=== PATIENT | male | born 1965 | race Caucasian/White ===

== ENCOUNTER 2018-09-22 11:31 | Observation (INO) | payer BC ==
[2018-09-22] MEDS ORDERED: RX INFO: IV CONTRAST WAS GIVEN 1 EACH MISC MISCELLANE PRN (11:56)
[2018-09-22] MEDS ORDERED: SODIUM CHLORIDE 0.9% 500 ML IV STA (11:58)
--- NOTE | 2018-09-22 11:59 | ED ---
General Adult HPI - General Chief complaint: Recheck/Abnormal Lab/Rx Stated complaint: can't swallow Time Seen by Provider: 09/22/18 11:44 Source: patient Mode of arrival: ambulatory Limitations: no limitations - History of Present Illness Initial comments: Dictation was produced using [employer] dictation software. please excuse any grammatical, word or spelling errors. Chief Complaint: 53-year-old male with past medical history of ALLERGIES presents with dysphagia. History of Present Illness: She is 53-year-old male. He states that approximately 2-3 times a year he gets episodes of dysphasia. [facility]. States that he had difficulty swallowing. Patient was told that he has ALLERGIC reactions that constantly this issue. Patient states he feels like there is foreign body sensation in his throat. He reports that his symptoms started when he was eating a fried blooming onion. Since then patient has been having intermittent episodes of drooling. Patient states that time he swallows he feels as though he has at the right right back up. The ROS documented in this emergency department record has been reviewed and confirmed by me. Those systems with pertinent positive or negative responses have been documented in the HPI. All other systems are other negative and/or noncontributory. PHYSICAL EXAM: General Impression: Alert and oriented x3, not in acute distress, no drooling, no tripoding HEENT: Normocephalic atraumatic, extra-ocular movements intact, pupils equal and reactive to light bilaterally, mucous membranes moist. Cardiovascular: Heart regular rate and rhythm, S1&S2 audible, no murmurs, rubs or gallops Chest: Lungs clear to auscultation bilaterally, no rhonchi, no wheeze, no rales Abdomen: Bowel sounds present, abdomen soft, non-tender, non-distended, no organomegaly Musculoskeletal: Pulses present and equal in all extremities, no peripheral garcia a Motor: no focal deficits noted Neurological: CN II-XII grossly intact, no focal motor or sensory deficits noted Skin: Intact with no visualized rashes Psych: Normal affect and mood ED course: 53-year-old male presents with chief complaint of dysphasia. Reports that today's episode is severe more than usual. He gets these episodes for approximately 2-3 times a year for the last 2-3 years. Vital signs upon arrival are within acceptable limits. Patient denies ever having been worked up for this in the past. Has not seen a GI specialist.Laboratory evaluation obtained. Mild leukocytosis of 11.8. Cardiac panel unremarkable. Metabolic panel shows mild Acidosis likely secondary to dehydration. Patient given intravenous fluids. CT of the chest was obtained to evaluate the esophagus. There is retained fluid construct a thoracic esophagus with poor clearance. There is also abnormal circumferential thickening. There is esophagitis versus stricture versus esophageal carcinoma differential. Patient not time. I bedside. Patient case discussed with Dr. Santizo of GI who will likely perform EGD tomorrow morning. Discussed patient case with accepting physician Dr. Lomax who requests a modified barium swallow study. Patient is understandable and agreeable to disposition. EKG interpretation: Ventricular rate 80, normal sinus rhythm, NJ interval 132, care is 86, QTC 445. No NJ prolongation, no QTC prolongation, no ST or T-wave changes noted. Overall, this EKG is unremarkable - Related Data Home Medications Medication Instructions Recorded Confirmed Diphenox-Atrop 2.5-0.025 mg 1 tab PO QID PRN 09/19/14 09/22/18 [Lomotil] Dicyclomine HCl 20 mg PO TID 09/22/18 09/22/18 diphenhydrAMINE HCL [Benadryl] 25 mg PO Q4H PRN 09/22/18 09/22/18 Allergies Allergy/AdvReac Type Severity Reaction Status Date / Time aspirin Allergy Rash/Hives Verified 09/22/18 12:24 blueberry Allergy Unknown Verified 09/22/18 12:24 latex Allergy Rash/Hives Verified 09/22/18 12:24 strawberry Allergy Unknown Verified 09/22/18 12:24 yellow dye Allergy Rash/Hives Verified 09/22/18 12:24 PICKLES Allergy Unknown Uncoded 09/22/18 12:24 Review of Systems ROS Statement: Those systems with pertinent positive or pertinent negative responses have been documented in the HPI. ROS Other: All systems not noted in ROS Statement are negative. Past Medical History Past Medical History: Hyperlipidemia History of Any Multi-Drug Resistant Organisms: None Reported Additional Past Surgical History / Comment(s): testicular sx; ibs Past Psychological History: Anxiety Smoking Status: Never smoker Past Alcohol Use History: None Reported Past Drug Use History: None Reported General Exam Limitations: no limitations Course Vital Signs 09/22/18 11:39 Temperature 98.1 F Pulse Rate 92 Respiratory 18 Rate Blood Pressure 159/112 O2 Sat by Pulse 99 Oximetry Medical Decision Making - Lab Data Result diagrams: 09/22/18 12:15 09/22/18 12:15 Lab Results 09/22/18 09/22/18 09/22/18 Range/Units 12:15 12:15 12:15 WBC 11.8 H (3.8-10.6) k/uL RBC 5.19 (4.30-5.90) m/uL Hgb 16.8 (13.0-17.5) gm/dL Hct 49.9 (39.0-53.0) % MCV 96.2 (80.0-100.0) fL MCH 32.4 (25.0-35.0) pg MCHC 33.7 (31.0-37.0) g/dL RDW 12.6 (11.5-15.5) % Plt Count 249 (150-450) k/uL Neutrophils % 78 % Lymphocytes % 12 % Monocytes % 6 % Eosinophils % 1 % Basophils % 0 % Neutrophils # 9.1 H (1.3-7.7) k/uL Lymphocytes # 1.4 (1.0-4.8) k/uL Monocytes # 0.7 (0-1.0) k/uL Eosinophils # 0.1 (0-0.7) k/uL Basophils # 0.1 (0-0.2) k/uL PT 11.7 (9.0-12.0) sec INR 1.1 (<1.2) Sodium 140 (137-145) mmol/L Potassium 4.3 (3.5-5.1) mmol/L Chloride 108 H (98-107) mmol/L Carbon Dioxide 20 L (22-30) mmol/L Anion Gap 12 mmol/L BUN 15 (9-20) mg/dL Creatinine 0.80 (0.66-1.25) mg/dL Est GFR (CKD-EPI)AfAm >90 (>60 ml/min/1.73 sqM) Est GFR (CKD-EPI)NonAf >90 (>60 ml/min/1.73 sqM) Glucose 113 H (74-99) mg/dL Calcium 10.4 H (8.4-10.2) mg/dL Disposition Clinical Impression: Dysphagia Disposition: ADMITTED IP TO THIS HOSP Condition: Fair Referrals: Zan Curran MD [Primary Care Provider] - 1-2 days Decision Time: 13:46
[2018-09-22 12:34] LABS: Basophils # (A) 0.1 k/uL (0-0.2); Basophils % (A) 0 %; Eosinophils # (A) 0.1 k/uL (0-0.7); Eosinophils % (A) 1 %; HCT 49.9 % (39.0-53.0); HGB 16.8 gm/dL (13.0-17.5); Lymphocytes # (A) 1.4 k/uL (1.0-4.8); Lymphocytes % (A) 12 %; MCH 32.4 pg (25.0-35.0); MCHC 33.7 g/dL (31.0-37.0); MCV 96.2 fL (80.0-100.0); Mean Platelet Volume 7.1; Monocytes # (A) 0.7 k/uL (0-1.0); Monocytes % (A) 6 %; Neutrophils # (A) 9.1 k/uL (1.3-7.7); Neutrophils % (A) 78 %; Platelet Count 249 k/uL (150-450); RBC 5.19 m/uL (4.30-5.90); RDW 12.6 % (11.5-15.5); WBC 11.8 k/uL (3.8-10.6)
[2018-09-22 12:42] LABS: Anion Gap 12 mmol/L; Blood Urea Nitrogen 15 mg/dL (9-20); Calcium 10.4 mg/dL (8.4-10.2); Carbon Dioxide 20 mmol/L (22-30); Chloride 108 mmol/L (98-107); Glucose 113 mg/dL (74-99); INR 1.1 (<1.2); Potassium 4.3 mmol/L (3.5-5.1); Prothrombin Time 11.7 sec (9.0-12.0); Sodium 140 mmol/L (137-145)
--- NOTE | 2018-09-22 13:09 | CT ---
EXAMINATION TYPE: CT chest w con DATE OF EXAM: 09/22/2018 COMPARISON: None HISTORY: 53-year-old male with pain, Trouble swallowing, possible stricture in esophagus TECHNIQUE: Contiguous axial scanning of the chest after the administration of 100 mL of Isovue 300. Coronal/sagittal reconstructions performed. CT DLP: 343.5mGycm. Automatic exposure control utilized for a dose reduction. FINDINGS: There is retained fluid column within the thoracic esophagus with circumferential thickening and neil led food debris at the distal esophagus. Direct visualization is recommended. Low attenuation of the hepatic parenchyma suggesting fatty infiltration. Hilar splenule. Mildly hydro pic gallbladder 4.5 cm wide without surrounding inflammation. Likely due to fasting state. Heart normal size without pericardial effusion. Aorta normal caliber with a bovine configuration to the aortic arch. No thoracic lymphadenopathy. No consolidation or pleural effusion. Bones: No osseous destructive process. IMPRESSION: 1. Retained fluid column throughout the thoracic esophagus compatible with poor clearance. There is a bnormal circumferential thickening at the distal esophagus and suggestion of some mottled food debris . Esophagitis and stricture versus esophageal carcinoma are both in the differential. Direct visualiz ation recommended. 2. No acute pulmonary process.
[2018-09-22] MEDS ORDERED: NALOXONE 0.4 MG/ML 1 ML VIAL IV PRN (13:43)
[2018-09-22] MEDS ORDERED: ACETAMINOPHEN TAB 325 MG TAB PO PRN (13:43)
[2018-09-22] MEDS ORDERED: SODIUM CHLORIDE 0.9% 1,000 ML IV SCH (13:45)
[2018-09-22] MEDS ORDERED: GLUCAGON 1 MG/ML VIAL IM STA (16:34)
[2018-09-22] MEDS: ENOXAPARIN 40 MG/0.4 ML SYRINGE SQ SCH ×2 (22:31→22:34)
[2018-09-22] MEDS: LACTATED RINGERS 1,000 ML IV SCH (22:32)
[2018-09-23] MEDS: LACTATED RINGERS 1,000 ML IV SCH ×2 (05:22→14:56)
[2018-09-23] MEDS ORDERED: LIDOCAINE HCL/PF 20 MG/ML 10 ML AMP ONE (12:43)
[2018-09-23] MEDS ORDERED: PROPOFOL 10 MG/ML 20 ML VIAL IV ONE (12:43)
[2018-09-23] MEDS ORDERED: SODIUM CHLORIDE 0.9% 500 ML 500 ML IV ONE (12:46)
--- NOTE | 2018-09-23 13:12 | P.CONS ---
History of Present Illness - Reason for Consult Consult date: 09/23/18 Dysphagia Requesting physician: David Lomax - Chief Complaint Difficulty swallowing - History of Present Illness 53-year-old male with a medical history significant for hyperlipidemia and anxiety who presents to the hospital with difficulty swallowing. The patient had been eating earlier in the day when he had an episode of pain in his chest and difficulty swallowing. The patient reports prior episodes approximately 2-3 times per year. He attributes this to ALLERGIES to which are difficult to avoid at times. He reported this sensation of a foreign body in his food pipe and had intermittent episodes of difficulty swallowing. On presentation to the emergency department the patient had a CT chest which showed retained fluid in the esophagus as well as thickening of the cecal esophagus. Labs were significant for a WBC 11.8, hemoglobin 16.8, platelet count 249,000, and INR 1.1. The patient denies any history of GERD or use of H2 antagonist or PPI the rapy at home. No significant NSAID use reported. No prior endoscopic evaluation. The patient has not followed up with a cigarette tester in the past. Review of Systems REVIEW OF SYSTEMS: CONSTITUTIONAL: Denies any fevers, chills, weight change or fatigue. CARDIOVASCULAR: Denies any chest pain, palpitations high or low blood pressures RESPIRATORY: Denies any shortness of breath, hemoptysis or cough. GENITOURINARY: No dysuria or hematuria. MUSCULOSKELETAL: No weakness reported. SKIN: Denies any new rashes or lesions, jaundice or pallor. PSYCHIATRIC: Denies any depression or anxiety. NEUROLOGY: Denies headache, denies any new focal deficits. EARS/NOSE/THROAT: No recent hearing change, congestion, nasal discharge or sore throat. EYES: No pain in eyes, discharge or change in vision. GASTROINTESTINAL: As per HPI. Past Medical History Past Medical History: Hyperlipidemia History of Any Multi-Drug Resistant Organisms: None Reported Additional Past Surgical History / Comment(s): testicular sx; ibs Past Anesthesia/Blood Transfusion Reactions: No Reported Reaction Past Psychological History: Anxiety Smoking Status: Never smoker Past Alcohol Use History: None Reported Past Drug Use History: None Reported Additional History: Family history: Reviewed with the patient and noncont ributory to current medical presentation. Medications and Allergies Home Medications Medication Instructions Recorded Confirmed Type Diphenox-Atrop 2.5-0.025 mg 1 tab PO QID PRN 09/19/14 09/22/18 History [Lomotil] Dicyclomine HCl 20 mg PO TID 09/22/18 09/22/18 History diphenhydrAMINE HCL [Benadryl] 25 mg PO Q4H PRN 09/22/18 09/22/18 History Allergies Allergy/AdvReac Type Severity Reaction Status Date / Time aspirin Allergy Rash/Hives Verified 09/22/18 12:24 blueberry Allergy Unknown Verified 09/22/18 12:24 latex Allergy Rash/Hives Verified 09/22/18 12:24 strawberry Allergy Unknown Verified 09/22/18 12:24 yellow dye Allergy Rash/Hives Verified 09/22/18 12:24 PICKLES Allergy Unknown Uncoded 09/22/18 12:24 Physical Exam Vitals: Vital Signs Temp Pulse Pulse Resp BP BP Pulse Ox 09/23/18 08:00 18 09/23/18 07:55 98.7 F 102 H 18 146/82 93 L 09/22/18 23:32 98.3 F 88 18 134/89 95 09/22/18 19:30 18 09/22/18 18:28 90 18 09/22/18 17:35 98.1 F 90 18 146/108 97 09/22/18 17:12 147/99 09/22/18 17:11 98.3 F 99 16 93 L 09/22/18 11:39 98.1 F 92 18 159/112 99 Intake and Output 09/22/18 09/23/18 09/23/18 22:59 06:59 14:59 Intake Total 640 937 Balance 640 937 Intake: Intake, IV Titration 640 937 Amount Lactated Ringers 1,000 ml 937 @ 125 mls/hr IV .Q8H [facility] Rx#:[id number] Sodium Chloride 0.9% 1, 640 000 ml @ 80 mls/hr IV . [id number] [facility] Rx#:[id number] Other: Voiding Method Toilet Toilet # Emeses 1 Results CBC & Chem 7: 09/22/18 12:15 09/22/18 12:15 Labs: Abnormal Lab Results - Last 24 Hours (Table) 09/22/18 09/22/18 Range/Units 12:15 12:15 WBC 11.8 H (3.8-10.6) k/uL Neutrophils # 9.1 H (1.3-7.7) k/uL Chloride 108 H (98-107) mmol/L Carbon Dioxide 20 L (22-30) mmol/L Glucose 113 H (74-99) mg/dL Calcium 10.4 H (8.4-10.2) mg/dL CT scan - chest: report reviewed (Computed tomography scan of the chest which was significant for retained fluid in the esophagus as well as thickening of the distal esophagus.) Assessment and Plan (1) Dysphagia Narrative/Plan: Patient presenting with intermittent episodes of dysphagia and the sensation of a esophageal foreign body. The patient had been eating when he developed the symptoms and reported bringing up secretions as well as having associated pain in his chest and epigastric region of his abdomen. Episodes have been intermittent in the past. No prior history of PPI use, NSAID use or prior endoscopic evaluation. Current Visit: Yes Status: Acute Code(s): R13.10 - DYSPHAGIA, UNSPECIFIED SNOMED Code(s): 58065645 Plan: Supportive care Nothing by mouth PPI therapy and Plan on EGD for further evaluation Plan for biopsy of the midesophagus in the setting of intermittent dysphagia Further recommendations pending findings of EGD Thank you for allowing us to participate in the care of the patient we will continue to follow
--- NOTE | 2018-09-23 13:16 | P.PCN ---
Date of Procedure: 09/23/18 Description of Procedure: BRIEF HISTORY: 53-year-old male with a medical history significant for hyperlipidemia and anxiety who presents to the hospital with difficulty swallowing. The patient had been eating earlier in the day when he had an episode of pain in his chest and difficulty swallowing. The patient reports prior episodes approximately 2-3 times per year. He attributes this to ALLERGIES to which are difficult to avoid at times. He reported this sensation of a foreign body in his food pipe and had intermittent episodes of difficulty swallowing. On presentation to the emergency department the patient had a CT chest which showed retained fluid in the esophagus as well as thickening of the cecal esophagus. Labs were significant for a WBC 11.8, hemoglobin 16.8, platelet count 249,000, and INR 1.1. The patient denies any history of GERD or use of H2 antagonist or PPI therapy at home. No significant NSAID use reported. No prior endoscopic evaluation. The patient has not followed up with a community arts officer in the past. PROCEDURE PERFORMED: Esophagogastroduodenoscopy with biopsy. PREOPERATIVE DIAGNOSIS: Dysphagia, epigastric abdominal pain. ESTIMATED BLOOD LOSS: Minimal. IV sedation per anesthesia. PROCEDURE: After informed consent was obtained, the patient was brought into the endoscopy unit. IV sedation was administered by Anesthesia under continuous monitoring. Initially the Olympus GIF-190 video endoscope was inserted into the mouth. Esophagus intubated without any difficulty. It was gradually advanced into the stomach and duodenum and carefully examined. The bulb and the second part of the duodenum appeared normal, with biopsies taken. The scope at this time was withdrawn to the stomach, adequately insufflated with air, and upon careful examination, mucosa of the antrum, body, cardia and the fundus were significant for moderate erythema and inflammation in the antrum and body suggestive of moderate gastritis with biopsies of the antrum and body taken. Stomach otherwise appeared normal. The scope was then withdrawn into the esophagus. The GE junction was located at 40 cm from the incisors. Inflammation and irritation in the distal esophagus measuring approximately 4 cm and consistent with LA grade C esophagitis was noted, with biopsies of the distal esophagus taken. Esophageal biopsies were also taken in the setting of intermittent episodes of dysphagia to rule out eosinophilic esophagitis. Esophagus was otherwise normal. The patient tolerated the procedure well. IMPRESSION: 1. Moderate gastritis antrum and body, biopsied. 2. Late grade C distal esophagitis with biopsies taken. 3. Duodenal biopsies. RECOMMENDATIONS: The findings of this examination were discussed with the patient, his and daughters. Okay for full liquids, advance to a GI soft as tolerated. Continue Protonix 40 mg twice daily. Await pathology from biopsies. Patient should follow-up with gastroenterology in the next 3-4 weeks after discharge.
[2018-09-23 16:26] VITALS: BP 131/86; PULSE 85; RESP 16; TEMP 99.6
[2018-09-23] MEDS ORDERED: PANTOPRAZOLE 40 MG TABLET PO SCH (17:30)
--- NOTE | 2018-09-23 18:00 | P.HPIM ---
History of Present Illness H&P Date: 09/23/18 Chief Complaint: Difficulty swallowing History of presenting complaint: This is a very pleasant 53-year-old patient of Dr. Zan Ferrer. Patient started off with difficulty swallowing about 2 years ago. Patient is advised to follow up for an endoscopy but never really did so. Patient over a course of time been having trouble swallowing and would have food stuck in the middle of the chest. It would eventually go down. Patient's symptoms progressively getting worse. More so with solids. Patient denies any obvious heartburn symptoms. Patient not to smoke or does not drink alcohol. No change in weight. Her appetite. Finally symptoms got to the point is really having trouble even taking anything down. Finally decided to come to the ER. No chest pain no fever or chills. Review of systems: GEN.: None EYES: None HEENT: None NECK: None RESPIRATORY: None CARDIOVASCULAR: None GASTROINTESTINAL: As above GENITOURINARY: None MUSCULOSKELETAL: None LYMPHATICS: None HEMATOLOGICAL: None PSYCHIATRY: None NEUROLOGICAL: None Past history: Irritable bowel syndrome, hyperlipidemia Social history: . No smoking or alcohol. Patient is an asset accountant. Family history: Reviewed, noncontributory to presentation Physical examination: VITAL SIGNS: 98.1, 92, 18, 159/112, 99% on room air GENERAL: Average built, sitting up, comfortable. EYES: Pupils equal. Conjunctiva normal. HEENT: External appearance of nose and ears normal, oral cavity grossly normal. NECK: JVD not raised; masses not palpable. HEART: First and second heart sounds are normal; no edema. LUNGS: Respiratory rate normal; clear to auscultation. ABDOMEN: Soft, nontender, liver spleen not palpable, no masses palpable. LYMPHATICS: No lymph nodes palpable in the axilla and neck. PSYCH: Alert and oriented x3; mood and affect normal. NEUROLOGICAL: Cranial nerves grossly intact; no facial asymmetry, power and sensation grossly intact. Investigations: Reviewed in the clinical context Computed tomography scan of the chest showing retained fluid: Throughout the thoracic esophagus compatible with poor clearance. Abnormal circumferential thickening of the distal esophagus and some mottled food debris White count 11.8 BUN and creatinine normal Calcium 10.4 Assessment: -This is a patient of velocities had been progressing symptoms of difficulty swallowing. To the point now is finding it difficult to keep anything down. Differential is multiple including esophagitis, malignancy. -Irritable bowel syndrome -Hyperlipidemia -Leukocytosis likely reactive from esophageal pathology -Hypercalcemia likely from dehydration Plan: Gastroenterology was consulted with a view to endoscopy.: IV fluids. We'll follow the results. Past Medical History Past Medical History: Hyperlipidemia History of Any Multi-Drug Resistant Organisms: None Reported Additional Past Surgical History / Comment(s): testicular sx; ibs Past Anesthesia/Blood Transfusion Reactions: No Reported Reaction Past Psychological History: Anxiety Smoking Status: Never smoker Past Alcohol Use History: None Reported Past Drug Use History: None Reported Medications and Allergies Home Medications Medication Instructions Recorded Confirmed Type Diphenox-Atrop 2.5-0.025 mg 1 tab PO QID PRN 09/19/14 09/22/18 History [Lomotil] Dicyclomine HCl 20 mg PO TID 09/22/18 09/22/18 History diphenhydrAMINE HCL [Benadryl] 25 mg PO Q4H PRN 09/22/18 09/22/18 History Allergies Allergy/AdvReac Type Severity Reaction Status Date / Time aspirin Allergy Rash/Hives Verified 09/22/18 12:24 blueberry Allergy Unknown Verified 09/22/18 12:24 latex Allergy Rash/Hives Verified 09/22/18 12:24 strawberry Allergy Unknown Verified 09/22/18 12:24 yellow dye Allergy Rash/Hives Verified 09/22/18 12:24 PICKLES Allergy Unknown Uncoded 09/22/18 12:24 Physical Exam Vitals: Vital Signs Temp Pulse Pulse Resp BP BP Pulse Ox 09/23/18 08:00 18 09/23/18 07:55 98.7 F 102 H 18 146/82 93 L 09/22/18 23:32 98.3 F 88 18 134/89 95 09/22/18 19:30 18 09/22/18 18:28 90 18 09/22/18 17:35 98.1 F 90 18 146/108 97 09/22/18 17:12 147/99 09/22/18 17:11 98.3 F 99 16 93 L Intake and Output 09/22/18 09/23/18 09/23/18 22:59 06:59 14:59 Intake Total 157 028 8177 Balance 979 120 8080 Intake: IV 1000 Lactated Ringers 1,000 ml 800 @ 125 mls/hr IV .Q8H [facility] Rx#:[id number] Intake, IV Titration 640 937 Amount Lactated Ringers 1,000 ml 937 @ 125 mls/hr IV .Q8H [facility] Rx#:[id number] Sodium Chloride 0.9% 1, 640 000 ml @ 80 mls/hr IV . [id number] [facility] Rx#:[id number] Other: Voiding Method Toilet Toilet # Voids 2 # Emeses 1 Results CBC & Chem 7: 09/22/18 12:15 09/22/18 12:15 Thrombosis Risk Factor Assmnt - Choose All That Apply Any of the Below Risk Factors Present?: Yes Each Factor Represents 1 point: Age 41-60 years, Obesity (BMI >25) Other Risk Factors: No Thrombosis Risk Factor Assessment Total Risk Factor Score: 2 Thrombosis Risk Factor Assessment Level: Low Risk
--- NOTE | 2018-09-23 18:06 | P.DS ---
Providers Date of admission: 09/22/18 13:43 Expected date of discharge: 09/23/18 Attending physician: David Lomax Consults: 09/22/18 13:44 Consult Physician Urgent Consulting Provider: Omar Paredes Consult Reason/Comments: dysphagia Do you want consulting provider notified?: Yes Dr. Mckay from GI Primary care physician: [facility] Course: Hospital course: Patient presented with progressively trouble with swallowing coming on repeated of 2 years. Patient did undergo a endoscopy by Dr. Mckay. Moderate significant gastritis is a generous. Biopsies were carried out. Patient started on PPI. She is told to be on liquid diet for right now and advance as tolerated. Care was discussed in detail with the patient. On exam Temperature 98.1, pulse 90, respiration 18, blood pressure 1 46/1 08 Abdomen soft nontender Final diagnoses: -Progressive severe dysphagia from severe esophagitis -Grade C esophagitis -Gastritis -Irritable bowel syndrome plan- Hypercalcemia from dehydration -Leukocytosis from esophageal inflammation Patient Condition at Discharge: Fair Plan - Discharge Summary Discharge Rx Participant: Yes New Discharge Prescriptions: New Pantoprazole [Protonix] 40 mg PO AC-BID #60 tablet.dr Avina Dicyclomine HCl 20 mg PO TID Discontinued Diphenox-Atrop 2.5-0.025 mg [Lomotil] 1 tab PO QID PRN PRN Reason: Diarrhea diphenhydrAMINE HCL [Benadryl] 25 mg PO Q4H PRN PRN Reason: Allergy Symptoms Discharge Medication List Dicyclomine HCl 20 mg PO TID 09/22/18 [History] Pantoprazole [Protonix] 40 mg PO AC-BID #60 tablet. 09/23/18 [Rx] Follow up Appointment(s)/Referral(s): Zan Curran MD [Primary Care Provider] - 1 Week Maurice Koenig MD [STAFF PHYSICIAN] - 3 Weeks
== END 2018-09-23 18:13 | disposition home or self-care (01) ==
LOC: EC 11:31 → 3NMEDONC 13:43 → 4SSUR 16:56 → 1SOBS 17:02
PROVIDERS: ADMIT Hospitalist; ATTEND Hospitalist
DX: K20.8 Other esophagitis (principal); K29.50 Unspecified chronic gastritis without bleeding; E86.0 Dehydration; E83.52 Hypercalcemia; E87.2 Acidosis; K58.9 Irritable bowel syndrome, unspecified; D72.829 Elevated white blood cell count, unspecified; F41.9 Anxiety disorder, unspecified; E78.5 Hyperlipidemia, unspecified; Z79.899 Other long term (current) drug therapy; Z88.6 Allergy status to analgesic agent; Z91.02 Food additives allergy status; Z91.040 Latex allergy status; Z91.018 Allergy to other foods
CPT/HCPCS: 96360; 96361; 96372; 99285; 36415; 93005; 88305; 80048; 85025; 85610; 88312; 88342; 71260; 43239; G0378 ×2; J1610; J2001; J2704; Q9967

== ENCOUNTER 2019-01-23 12:25 | Day surgery (SDC) | payer BC ==
[2019-01-22 08:52] VITALS: BMI 28.8
[2019-01-23] MEDS: LACTATED RINGERS 1,000 ML IV SCH ×2 (12:58→14:05)
[2019-01-23] MEDS ORDERED: LIDOCAINE 1% 20 ML VIAL (10MG/ML) FOR IV START INTRADERMA ONE (12:58)
[2019-01-23 13:08] VITALS: RESP 16; TEMP 98.1
[2019-01-23] MEDS ORDERED: PROPOFOL 10 MG/ML 20 ML VIAL IV ONE (14:07)
[2019-01-23] MEDS ORDERED: LIDOCAINE 1% INJ 10MG/ML (20 ML MDV) ONE (14:07)
--- NOTE | 2019-01-23 14:56 | P.PCN ---
Date of Procedure: 01/23/19 Description of Procedure: Brief history: 53-year-old male who is seen for outpatient EGD and colonoscopy. He was seen in the [facility] at which time he was reporting intermittent solid food dysphagia. EGD at that time showed esophagitis and gastritis. Currently reporting symptoms are improved on acid suppression therapy. Patient also reports a remote history of colonoscopy approximately 10 years ago. Denies any new signs or symptoms, including any GI bleeding but does have a history of IBS with loose stool. Procedure performed: Esophagogastroduodenoscopy with biopsy Colonoscopy with polypectomy Estimated blood loss: Minimal. Preoperative diagnosis: GERD, history of esophagitis/gastritis, personal history of colon polyps, last colonoscopy approximately 10 years ago Anesthesia: MAC Procedure: After informed consent was obtained from the patient was brought into the endoscopy unit and IV sedation was administered by anesthesia under continuous monitoring. Initially upper endoscopy was done. The Olympus GF 190 video endoscope was inserted inserted into the mouth and esophagus intubated without any difficulty and was gradually advanced into the stomach and duodenum and carefully examined. The bulb and second part of the duodenum appeared normal, with biopsies taken. The scope was then withdrawn into the stomach adequately insufflated with air and upon careful examination the antrum and body, cardia and fundus appeared normal, except for some mild scattered erythema in the antrum and body suggestive of mild gastritis which was biopsied. The scope was then withdrawn into the esophagus. The GE junction was located at 40 cm to the incisors. It appeared regular with no erythema erosions or ulcerations, previously seen esophagitis improved. Rest of the esophagus appeared normal. Patient tolerated the procedure well. At this time the patient continued to remain sedation. Initial digital rectal examination was normal. Olympus CF 190 video colonoscope was then inserted into the rectum and gradually advanced to the cecum without any difficulty. Careful examination was performed as the scope was gradually being withdrawn. The prep was excellent. The cecum, ascending colon, transverse colon, descending colon, sigmoid colon and rectum appeared normal. 3 mm descending colon sessile polyp removed with cold forcep polypectomy. Mild internal hemorrhoids. Retroflexion was performed in the rectum and no lesions were noted. Patient tolerated the procedure well. Impression: 1. Mild gastritis antrum and body, biopsied. Previously seen esophagitis healed. Duodenal biopsies. 2. Descending sessile polyp removed with cold forcep. Mild internal hemorrhoids. Recommendations: Findings of this examination were discussed with the patient as well as his . Okay to resume diet. Continue current medical management. Repeat colono scopy in 5 years pending pathology from polypectomy.
[2019-01-23 15:24] VITALS: BP 135/91; PULSE 73
== END 2019-01-23 15:51 | disposition home or self-care (01) ==
LOC: ORWHC2ENDO 12:25
PROVIDERS: ATTEND Internal Medicine
DX: K21.9 Gastro-esophageal reflux disease without esophagitis (principal); K29.50 Unspecified chronic gastritis without bleeding; Z12.11 Encounter for screening for malignant neoplasm of colon; Z86.010 Personal history of colon polyps; K63.5 Polyp of colon; K64.8 Other hemorrhoids; Z79.899 Other long term (current) drug therapy; Z88.6 Allergy status to analgesic agent; Z91.018 Allergy to other foods; Z91.048 Other nonmedicinal substance allergy status
CPT/HCPCS: 45380; 43239; 88305; J2001; J2704